=== PATIENT | female | born 1930 | race Caucasian/White ===

== ENCOUNTER → 2017-02-20 | Outpatient (CLI) | payer MEDICARE, OTHER ==
--- NOTE | 2017-02-20 20:14 | HKNOTE ---
DATE OF SERVICE: 02/20/2017 ELECTRIC STOP INSTALLER: Dr. Babak Molina, [address] [facility], [address], [place] [address]. MAIN COMPLAINT: Pain in the left knee. HISTORY OF MAIN COMPLAINT: The patient is an 86-year-old female who complains of pain in her left k nee, which has been present for about a year. There has been no history of injury to the knee. The patient has previously undergone a right knee replacement at the [facility] in [facility] in [address] Storey. There were no postoperative complications. She took quite a long time to make a full recovery, but she is pleased with the final result. She consulted with an orthopedic surgeon in [place] in September. After evaluation, he did not i ndicate that surgery might be needed. He did not give her injections into the knee. The knee pain has become progressively worse. PRESENT COMPLAINTS: The pain is localized to the left knee. Pain is described as moderate. At kem es it becomes quite severe. She gets pain every day with every step that she takes. She is not wal jairon very much on account of the pain. It is difficult for her to go shopping. The knee pain is ag gravated by walking, weightbearing, and stair climbing. She does get some pain at rest and at night . She takes Excedrin. This helps somewhat. The left knee swells. Does not lock and does not feel unstable. She has a history of pain in the lower back and has been diagnosed as having "slipped disks." No nu mbness or tingling in the lower extremities. She limps all the time. She does not use a walking aid. She does not have a shoe lift. She cannot clip her toenails, but she can tie her shoelaces on both feet. SPORTING ACTIVITIES: None. PREVIOUS ORTHOPEDIC OPERATIONS: Right hip replacement in 2006. Right knee replacement in 2008. PRIOR CORTISONE INTAKE: Patient recalls 2 injections. ALCOHOL INTAKE: "Rarely." OTHER JOINT PROBLEMS: None. BLOOD TESTS FOR ARTHRITIS: None. PRIOR INJURIES TO HIPS OR KNEES: None. WORK STATUS: The patient is retired. PAST MEDICAL HISTORY: 1. Hypertension. 2. Hypothyroid. 3. Anemia. 4. "Kidney disease." 5. Hypoglycemia. PAST SURGICAL HISTORY: 1. Right knee replacement in 2008. 2. Right hip replacement in 2006. 3. Blood clot removed from the right leg in 1978. ALLERGIES: 1. PENICILLIN. 2. CODEINE. MEDICATIONS: 1. Levothyroxine 50 mcg once a day. 2. Amlodipine 1 tablet daily for blood pressure. 3. Procrit every 3 to 4 months by injection. FAMILY HISTORY: Noncontributory. SYSTEMS REVIEW: History of blood clots, poor appetite, excess urination, excess night urination, ot herwise negative. HABITS: Patient does not smoke or drink alcoholic beverages. PHYSICAL EXAMINATION: GENERAL: Patient is a rather fragile looking 86-year-old female but mentally she is completely aler t. She comes in with her son. VITAL SIGNS: Height 5 feet 2 inches, weight 104 pounds, blood pressure 180/99, pulse 65, respiratio ns 12 per minute. GAIT: Patient walks without a walking aid. She has a severe antalgic gait. She can hardly get ont o the examination couch. HIPS: Both hips have a full range of motion without pain. No tenderness anywhere around either hip . LEFT KNEE: The left knee shows normal alignment. Flexion lacks 25 degrees. Extension lacks 5 degre es. The medial and lateral collateral ligaments and cruciate ligaments are intact. Katherin test is n egative. There is no effusion, tenderness, scarring, crepitus, or cysts. The patella tracks normally . There is no tenderness on the articular surface of the patella or in the patellar groove. The Q an gle is normal. Pain at all limits of motion. 2+ effusion, 6+ crepitus in the knee and under the pa tella. RIGHT KNEE: Scar of previous knee replacement. Excellent range of motion. No external sign of inf ection or inflammation. IMAGING: Plain x-rays of her left knee obtained on 01/18/[address] Molina were reviewed. Th e imaging for the left knee shows severe degenerative osteoarthritis affecting medial compartment an d patellofemoral joint. Large osteophytes throughout. A small medial femoral condyle. DIAGNOSIS: 1. Severe degenerative osteoarthritis of the left knee. 2. Hypertension. 3. Hypothyroid. 4. Status post right knee replacement. 5. Status post right hip replacement. 6. Anemia of unknown causes. 7. "Kidney disease." 7. Hypoglycemia. MANAGEMENT: The patient was advised that I could try to nurse her along for as long as possible wit h cortisone injections into the knee. We may also try viscosupplementation. Patient, by her own ad mission, she is "very fit" and expects to live at least another 10 years! Under sterile conditions, given injection of 2 mL of Kenalog and 6 mL of 2% lidocaine into the left knee. She is advised that she can return every 3 months for further injections if needed. By way of completion, we briefly discussed knee replacement surgery. It is unlikely that she will w ant to have the surgery, and it is also unlikely that she is fit enough to undergo the surgery. She will return for further injections as needed. Dictated By: NATHALIE MORRIS/RADHA Conf#: [id number] DID#: [id number]
== END | disposition home or self-care (01) ==
LOC: HKI 14:46
DX: M25.562 Pain in left knee (principal); M17.12 Unilateral primary osteoarthritis, left knee; I10 Essential (primary) hypertension; D64.9 Anemia, unspecified; E03.9 Hypothyroidism, unspecified; Z96.651 Presence of right artificial knee joint; Z96.641 Presence of right artificial hip joint
CPT/HCPCS: 20610; G0463

== ENCOUNTER → 2017-05-28 | Outpatient (CLI) | payer MEDICARE, OTHER ==
--- NOTE | 2017-05-28 14:35 | PN ---
Date/Time of Note Date/Time of Note DATE: 05/28/17 TIME: 14:27 Outpatient Progress Note Chief Complaint Left knee osteoarthritis HPI 87-year-old female presents today for follow-up regarding left knee osteoarthritis. Was seen as a new patient on 02/20/[address] Pulido. After review of x-ray, patient was diagnosed with severe degenerative osteoarthritis of the left knee especially to the medial compartment. Given patient's age and medical history, it was determined that to perform total knee arthroplasty the benefits do not outweigh the risks and supportive measures were encouraged instead. Cortisone injection was performed on last evaluation which patient states that she received about 80-90% relief for about 4 weeks. Pain has returned to an average of 6-8/10 on the pain scale depending on activity. Patient states that she has a constant baseline pain typically around 4-6/10 on the pain scale. Denies any falls or injury since she was last seen. Important to note however, prior to exam patient went to the bathroom in this facility and she experienced a near fall as she tripped over her shoe and had superficial skin abrasion to the left forearm. Review of Systems Const: No Fever, no chills, no Fatigue, normal appetite, no diaphoresis. Resp: No SOB, no wheezing, no chest pain. CV: No chest pain, no palpitaions, no HOOPER. Physical Exam Blood pressure is 165/70, temperature is 99.1, pulse is 65, respiratory rate is 12, height is 5 foot 2 inches, weight is 104 pounds. General Appearance: well-developed, well-nourished, in no acute distress. Left knee: Valgus deformity on inspection. Tenderness to palpation primarily to the medial compartment. Normal sensory examination to light touch. 4+/5 strength on resistance with flexion and extension. Patient has about 10 lag from full extension. Patient is able to flex up to 115 on exam today. Noted tricompartmental crepitus predominantly on the lateral compartment during exam today. Negative Homans sign. Antalgic gait on examination. Inspection of the left forearm reveals superficial skin abrasion with no signs of infection.Thin film of skin avulsion is visualized. Normal sensory examination distally. Patient denies any head injury/trauma after near fall that occurred prior to examination.She is alert and oriented 4. Assessment/Plan Problems: (1) Osteoarthritis of left knee (2) Abrasion of skin * Skin avulsion to the left forearm was cleaned with Betadine swab. Thin film of Neosporin applied to the abrasion. Telfa dressing and Kerlix applied over the wound. Wound care instructions discussed in detail with patient and patient 's son. * Patient is provided verbal and written consent to proceed with left knee cortisone injection. Area of injection to the superior lateral knee was cleaned with Betadine swab. 18-gauge needle used to draw up 2 cc of 40 mg per male Kenalog with 6 cc of 1% lidocaine. Using 25-gauge needle cortisone injection was performed without complications. Patient was observed for 5 minutes and then discharged. * Continue anti-inflammatories for ongoing osteoarthritis. * Patient also Mentions today that PCP, Dr. Molina does not recommend surgical intervention given chronic kidney disease. * Patient will follow up on as-needed basis. May be seen in 3-4 months if cortisone injection is successful and would like to discuss repeat injection. ALISON MARIE PA-C May 28, 2017 14:35
== END | disposition home or self-care (01) ==
LOC: HKI 13:20
DX: M17.12 Unilateral primary osteoarthritis, left knee (principal); S50.812A Abrasion of left forearm, initial encounter; X58.XXXA Exposure to other specified factors, initial encounter
CPT/HCPCS: 20610